=== PATIENT | male | born 1975 | race Caucasian/White ===

== ENCOUNTER 2019-12-22 03:29 | Inpatient (IN) | payer SELFPAY ==
[~2019-12-22] VITALS: Ht 177.8 cm; Wt 87.0 kg
[2019-12-22] MEDS ORDERED: Vitamin D2000 UNIT PO (03:40)
[2019-12-22] MEDS ORDERED: LISI10 PO (03:40)
[2019-12-22] MEDS ORDERED: LEVE500 PO (03:40)
[2019-12-22 03:46] LABS: BASOPHILS ABSOLUTE AUTO 0.02 K/mm3 (0.00-0.23); BASOPHILS PERCENT AUTO 0 % (0-2); EOSINOPHILS ABSOLUTE AUTO 0.03 K/mm3 (0.00-0.68); EOSINOPHILS PERCENT AUTO 0 % (0-6); Hemoglobin 7.1 g/dL (13.5-17.5); IMMATURE GRAN ABSOLUTE AUTO 0.01 K/mm3 (0.00-0.10); IMMATURE GRAN PERCENT AUTO 0 % (0-1); LYMPHOCYTES ABSOLUTE AUTO 0.81 K/mm3 (0.84-5.20); LYMPHOCYTES PERCENT AUTO 12 % (21-46); MONOCYTES ABSOLUTE AUTO 0.44 K/mm3 (0.16-1.47); MONOCYTES PERCENT AUTO 7 % (4-13); Mean Corpuscular HGB Conc 33.8 g/dL (31.5-36.5); Mean Corpuscular Volume 103 fL (80-100); Mean Platelet Volume 10.8 fL (9.1-12.4); NEUTROPHILS ABSOLUTE AUTO 5.48 K/mm3 (1.96-9.15); NEUTROPHILS PERCENT AUTO 81 % (41-73); Platelet Count 63 K/mm3 (150-400); RDW Coefficient Variation 16.1 % (11.7-14.2); RDW Standard Deviation 61.4 fL (35.1-46.3); Red Blood Cell Count 2.03 M/mm3 (4.30-5.90); White Blood Cell Count 6.79 K/mm3 (4.00-11.30)
[2019-12-22 04:09] LABS: Albumin, Blood 2.2 g/dL (3.4-5.0); Albumin/Globulin Ratio 0.6 (0.8-1.8); Bilirubin, Total 4.7 mg/dL (0.1-1.0); Bun/Creatinine Ratio 16.1 (12.0-20.0); Calcium, Blood 8.3 mg/dL (8.5-10.1); Creatinine, Blood 1.92 mg/dL (0.60-1.20); Globulin, Blood 3.9 g/dL (2.2-4.0); Potassium, Blood 4.9 mmol/L (3.5-5.5); Total Protein, Blood 6.1 g/dL (6.4-8.2)
[2019-12-22 04:29] LABS: Magnesium, Blood 1.1 mg/dL (1.6-2.4)
[2019-12-22 04:36] LABS: Source, Urine Clean Catch
[2019-12-22 04:38] LABS: Bilirubin, Urine Neg (Neg); Blood, Urine Neg (Neg); Glucose Qualitative, Urine Neg (Neg); Ketones, Urine Neg (Neg); Leukocyte Esterase, Urine Neg (Neg); Nitrite, Urine Neg (Neg); Protein, Urine Neg (Neg); Specific Gravity, Urine 1.015 (1.003-1.022); Urobilinogen, Urine 1+ (Normal)
[2019-12-22 04:49] LABS: Appearance, Urine Clear (Clear); Color, Urine Amber (P-Yellow)
[2019-12-22 04:56] LABS: International Normalized Ratio 1.4; Prothrombin Time Results 14.7 Sec (9.7-11.5)
[2019-12-22 05:29] LABS: U Amphetamine Screen Not Detected; U Barbituate Screen Not Detected; U Benzodiazapine Screen DETECTED; U Buprenorphine Screen Not Detected; U Cannabinoids Screen DETECTED; U Cocaine Screen Not Detected; U Methadone Screen Not Detected; U Methamphetamine Screen Not Detected; U Opiates Screen Not Detected; U Oxycodone Screen Not Detected; U Phencyclidine Screen Not Detected; U Propoxyphene Screen Not Detected
[2019-12-22] MEDS ORDERED: FISH OIL 1,0001 EAC7 PO (08:48)
[2019-12-22] MEDS ORDERED: IBUP600 PO (08:49)
[2019-12-22 11:09] LABS: Hematocrit 21.9 % (37.0-53.0); Hemoglobin 7.3 g/dL (13.5-17.5)
--- NOTE | 2019-12-22 12:29 | NUR ---
12/22/19 1229 Dasha Calderon History, Chart, Medications and Allergies reviewed before start of procedure.PATIENT DETERMINED TO BE ASA APPROPRIATE FOR PROPOFOL SEDATION PRIOR TO START OF PROCEDURE BY MONITOR INTACT WITH CONTINUOUS PULSE OXIMETRY AND INTERMITTENT BP. 3-LEAD EKG REVIEWED WITH PHYSICIAN PRIOR TO START OF PROCEDURE.O2 VIA N/C INTACT THROUGHOUT SEDATION/PROCEDURE.
[2019-12-22 14:32] LABS: BASOPHILS ABSOLUTE AUTO 0.02 K/mm3 (0.00-0.23); BASOPHILS PERCENT AUTO 0 % (0-2); EOSINOPHILS ABSOLUTE AUTO 0.03 K/mm3 (0.00-0.68); EOSINOPHILS PERCENT AUTO 1 % (0-6); Hemoglobin 7.7 g/dL (13.5-17.5); IMMATURE GRAN ABSOLUTE AUTO 0.01 K/mm3 (0.00-0.10); IMMATURE GRAN PERCENT AUTO 0 % (0-1); LYMPHOCYTES ABSOLUTE AUTO 0.62 K/mm3 (0.84-5.20); LYMPHOCYTES PERCENT AUTO 11 % (21-46); MONOCYTES ABSOLUTE AUTO 0.51 K/mm3 (0.16-1.47); MONOCYTES PERCENT AUTO 9 % (4-13); Mean Corpuscular HGB 32.4 pg (26.0-34.0); Mean Corpuscular HGB Conc 33.5 g/dL (31.5-36.5); Mean Platelet Volume 11.2 fL (9.1-12.4); NEUTROPHILS ABSOLUTE AUTO 4.31 K/mm3 (1.96-9.15); NEUTROPHILS PERCENT AUTO 78 % (41-73); RDW Coefficient Variation 18.7 % (11.7-14.2); RDW Standard Deviation 66.3 fL (35.1-46.3); Red Blood Cell Count 2.38 M/mm3 (4.30-5.90)
[2019-12-22 14:54] LABS: Mean Corpuscular Volume 97 fL (80-100)
[2019-12-22 14:55] LABS: Platelet Count 37 K/mm3 (150-400)
--- NOTE | 2019-12-22 16:00 | NUR ---
PT ADMITTED THIS AM AT 0805 FROM ER FOR ACUTE/ACTIVE UPPER GI BLEED. PT VOMITED DARK RED BLOOD W CLOTS ON TRANSFER FROM ER TO ICU PER SUPPORT REPRESENTATIVE. PT NAUSEATED ON ADMIT BUT DENIED ABD PAIN. ON ADMIT PT C/O CHRONIC SCIATICA PAIN 08/27. PT ALSO C/O PAIN TO HEAD 08/27. PT STATES THAT HE DRINKS HARD ALCOHOL 4X WEEK OR MORE, DESCRIBES SELF "HABITUAL ALCOHOLIC". PT HAS FINE UPPER ARM REMORS W ARMS EXTENDED. PT POS FOR ETOH ON ADMIT; WILL MONITOR FOR W/D SYMPTOMS. W/D SYMPTOMS ALSO DISCUSED W PT; PT WILL NOTIFY RN IF HE FEELS W/D SYMPTOMS INCREASING. PT RECEIVED ONE UNIT PRBC'S IN ER, SECOND UNIT STARTED AT 0837, THIRD UNIT STARTED AT 1153 AND ENDED AT 1402. PT TOLERATED ALL BLOOD PRODUCTS W/O ANY ADVERSE REACTIONS. LUNGS REMAIN CLEAR. DR MONTANA CALLED UPON ADMIT AND GIVEN FULL UPDATE. 3RD UNIT RBC'S ORDERED PRIOR TO EGD BY DR MONTANA. LEVOPHED ALSO OREDERED FOR EGD. LEVOPHED BRIEFLY USED FROM FROM 1159 UNTIL 1241. LEVOPHED TITRATED TO 10MCG DURING PROCEDURE AND TITRATED OFF AT 1241. EGD SHOWED 2 ULCERS; NOT ACTIVELY BLEEDING PER DR MONTANA. STOMACH WAS "FULL OF BLOOD". REGLAN GIVEN EARLIER FOR NAUSEA AND STARTED SCHEDULED DOSE TO MOVE BLOOD. PT HAS BEEN INCONTINENT OF BLACK LIQUID STOOL SEVERAL TIMES SINCE EGD. PT TO BEDSIDE COMMODE AT 1515 W ABOUT 500CC OLD BLOOD TO COMMODE. PT TOLERATED BEING UPRIGHT OOB AND BP REMAINS STABLE. DR BEDOLLA IN TO SEE PT THIS AM AT 0920. DR BEDOLLA UPDATED AT 1054; MG 2GM ORDERED FOR MAG OF 1.2. DR BEDOLLA AGAIN UPDATED AT 1534 WITH CRITICAL LOW PLATELETS. LABS ORDERED FOR 1800. PT STARTED ON ICE CHIPS AND THEN PROGRESSED TO CLEAR LIQUIDS PER DR MONTANA. PT TOLERATING LIQUIDS WELL W/O NAUSEA OR VOMITING. PROTONIX AND SANDOSTATIN GTT HAVE BEEN INFUSING SINCE THIS AM AND CONT TO INFUSE PER DR MONTANA. PT'S IS AT BEDSIDE NOW.
[2019-12-22 18:41] LABS: BASOPHILS ABSOLUTE AUTO 0.02 K/mm3 (0.00-0.23); BASOPHILS PERCENT AUTO 0 % (0-2); EOSINOPHILS ABSOLUTE AUTO 0.03 K/mm3 (0.00-0.68); EOSINOPHILS PERCENT AUTO 1 % (0-6); Hematocrit 22.3 % (37.0-53.0); Hemoglobin 7.6 g/dL (13.5-17.5); IMMATURE GRAN ABSOLUTE AUTO 0.01 K/mm3 (0.00-0.10); IMMATURE GRAN PERCENT AUTO 0 % (0-1); LYMPHOCYTES ABSOLUTE AUTO 0.64 K/mm3 (0.84-5.20); LYMPHOCYTES PERCENT AUTO 10 % (21-46); MONOCYTES ABSOLUTE AUTO 0.49 K/mm3 (0.16-1.47); MONOCYTES PERCENT AUTO 8 % (4-13); Mean Corpuscular HGB 32.6 pg (26.0-34.0); Mean Corpuscular HGB Conc 34.1 g/dL (31.5-36.5); Mean Corpuscular Volume 96 fL (80-100); NEUTROPHILS ABSOLUTE AUTO 5.29 K/mm3 (1.96-9.15); NEUTROPHILS PERCENT AUTO 82 % (41-73); RDW Coefficient Variation 19.2 % (11.7-14.2); RDW Standard Deviation 65.9 fL (35.1-46.3); Red Blood Cell Count 2.33 M/mm3 (4.30-5.90); White Blood Cell Count 6.48 K/mm3 (4.00-11.30)
[2019-12-22 18:59] LABS: Platelet Count 34 K/mm3 (150-400)
--- NOTE | 2019-12-22 19:34 | NUR ---
PT GIVEN LIBRIUM 50MG FOR CIWA 11. PT HAS FINE TREMOR WITH HANDS EXTENDED, C/O HEADACHE 6/10, AND ANXIETY WORSE THAN BASELINE. BP STABLE AND IS IN FACT SLIGHTLY HTN. PT TO TOILET W SBA; ASYMPTOMATIC. DENIES DIZZINESS. [address] BEDOLLA. REPEAT LABS AT 2300. REPORT GIVEN TO ARNAV ALFARO.
--- NOTE | 2019-12-22 19:55 | NUR ---
ASSUMED CARE: PT ALERT, ORIENTED. FEBRILE WITH A TEMP OF 99.6. PT DOES C/O OF SOME ANXIETY/IRRITABILITY AND A TITUS 5/10. IN ST. SBP IN THE 160S, HR IN THE 110S. LUNG SOUNDS CLEAR, SPO2 >90% RA. PT IS ON A CLEAR LIQUID DIET. BT X 4, HYPERACTIVE. PT DOES NOT C/O N/V OR ABD CRAMPING. PT HAD A BM AT BEGINNING OF SHIFT. IT WAS LARGE, LIQUID, DARK, AND RED. PT IS UP IN ROOM WITH A STANDBY ASSIST BUT OTHERWISE INDEPENDENT. PT HAS 4 IVS. IRIS, LAC.LFA, AND RFA. NS INFUSING AT 100MLS/HR, SANDOSTATIN AT 25MLS/HR, PROTONIX AT 10MLS/HR.. WILL CONTINUE TO MONITOR
[2019-12-22 23:39] LABS: BASOPHILS ABSOLUTE AUTO 0.04 K/mm3 (0.00-0.23); BASOPHILS PERCENT AUTO 1 % (0-2); EOSINOPHILS PERCENT AUTO 2 % (0-6); Hematocrit 23.1 % (37.0-53.0); Hemoglobin 7.8 g/dL (13.5-17.5); IMMATURE GRAN ABSOLUTE AUTO 0.02 K/mm3 (0.00-0.10); IMMATURE GRAN PERCENT AUTO 0 % (0-1); LYMPHOCYTES ABSOLUTE AUTO 0.88 K/mm3 (0.84-5.20); LYMPHOCYTES PERCENT AUTO 13 % (21-46); MONOCYTES ABSOLUTE AUTO 0.44 K/mm3 (0.16-1.47); MONOCYTES PERCENT AUTO 7 % (4-13); Mean Corpuscular HGB Conc 33.8 g/dL (31.5-36.5); Mean Corpuscular Volume 95 fL (80-100); Mean Platelet Volume 11.5 fL (9.1-12.4); NEUTROPHILS ABSOLUTE AUTO 5.12 K/mm3 (1.96-9.15); NEUTROPHILS PERCENT AUTO 78 % (41-73); RDW Coefficient Variation 19.4 % (11.7-14.2); RDW Standard Deviation 66.4 fL (35.1-46.3); Red Blood Cell Count 2.44 M/mm3 (4.30-5.90)
[2019-12-22 23:43] LABS: Platelet Count 37 K/mm3 (150-400)
--- NOTE | 2019-12-23 03:44 | NUR ---
CALL PLACED TO DR FORREST RE SBP IN THE 200S. ORDERS RECEIVED FOR HYDRALAZINE 10MG IV Q6 PRN FOR SBP >160. FIRST DOSE GIVEN
[2019-12-23 05:07] LABS: BASOPHILS ABSOLUTE AUTO 0.03 K/mm3 (0.00-0.23); BASOPHILS PERCENT AUTO 1 % (0-2); EOSINOPHILS ABSOLUTE AUTO 0.12 K/mm3 (0.00-0.68); EOSINOPHILS PERCENT AUTO 2 % (0-6); Hematocrit 23.3 % (37.0-53.0); IMMATURE GRAN ABSOLUTE AUTO 0.02 K/mm3 (0.00-0.10); IMMATURE GRAN PERCENT AUTO 0 % (0-1); LYMPHOCYTES ABSOLUTE AUTO 0.74 K/mm3 (0.84-5.20); LYMPHOCYTES PERCENT AUTO 15 % (21-46); MONOCYTES ABSOLUTE AUTO 0.42 K/mm3 (0.16-1.47); MONOCYTES PERCENT AUTO 8 % (4-13); Mean Corpuscular HGB 32.9 pg (26.0-34.0); Mean Corpuscular HGB Conc 34.3 g/dL (31.5-36.5); Mean Corpuscular Volume 96 fL (80-100); Mean Platelet Volume 11.1 fL (9.1-12.4); NEUTROPHILS ABSOLUTE AUTO 3.77 K/mm3 (1.96-9.15); NEUTROPHILS PERCENT AUTO 74 % (41-73); RDW Coefficient Variation 19.8 % (11.7-14.2); RDW Standard Deviation 67.7 fL (35.1-46.3); Red Blood Cell Count 2.43 M/mm3 (4.30-5.90)
[2019-12-23 05:09] LABS: Platelet Count 32 K/mm3 (150-400)
--- NOTE | 2019-12-23 06:16 | NUR ---
SHIFT SUMMARY: PT SLEPT MAJORITY OF NIGHT. HAD A COUPLE MOMENTS OF IMPULSIVENESS, ATTEMPTING TO GET OUT OF BED WITHOUT USING CALL LIGHT. PT HAD ONE EPISODE OF BOWEL AND BLADDER INCONTINENCE. IS ABLE TO USE URINAL BUT NEEDS SOME ASSISTANCE. PT HAS HAD AN INCREASE OF ETOH WITHDRAWAL SYMPTOMS. CIWA 11, 16, 9. MEDICATED WITH ATIVAN X 2 AND PO LIBRIUM. NO FURTHER S/S OF BLEEDING. NO HEMATEMESIS AND BLOODY STOOL X 2. PT BP ELEVATED. HYDRALAZINE ORDERED PRN. ONE DOSE GIVEN WITH MINIMAL EFFECT. PER ADRIANE ORDER NS HAS BEEN D/C'D. SANDOSTATIN RUNNING AT 25MLS/HR AND PROTONIX AT 10ML/HR. WILL PASS REPORT TO ONCOMING SHIFT
--- NOTE | 2019-12-23 09:55 | NUR ---
PT ASSESSED THIS AM AT 0730. PT SLEEPING, AWAKENS TO LIGHT SHAKE. PT C/O TITUS 11/27. BP ELEVATED. CIWA 13. CIWA ELEVATED FOR TREMORS AND TITUS. PT STATES HE WOULD LIKE TO QUIT DRINKING. LIBRIUM 50MG GIVEN. DR BEDOLLA IN TO SEE PT, FULL UPDATE GIVEN. LABETALOL ORDERED PRN FOR SBP>180, THIS WAS GIVEN W GOOD EFFECT. FENT GIVEN FOR TITUS. NO SIGNS OF ACTIVE BLEEDING, PT DENIES NAUSEA OR ABD PAIN. PROTONIX AND SANDOSTATIN GTT INFUSING. PT WOKE UP AT 1000, INCONTINENT OF URINE. PT SOMEWHAT AGITATED AND SLIGHTLY ANGRY. PT SEEMED DISORIENTED TO WHY HE WAS HOOKED UP AND INCONTINENT. PT REDIRECTABLE. PT IMPULSIVE; BED ALARM ON
[2019-12-23 11:16] LABS: Anion Gap 6 mmol/L (6-16); Blood Urea Nitrogen 23 mg/dL (8-24); Bun/Creatinine Ratio 21.5 (12.0-20.0); CO2, Blood 24 mmol/L (21-32); Calcium, Blood 7.3 mg/dL (8.5-10.1); Chloride, Blood 106 mmol/L (98-108); Creatinine, Blood 1.07 mg/dL (0.60-1.20); Glomerular Filtration Rate >60 (60-); Glucose, Blood 203 mg/dL (70-99); Potassium, Blood 3.8 mmol/L (3.5-5.5); Sodium, Blood 136 mmol/L (136-145)
--- NOTE | 2019-12-23 13:23 | NUR ---
PT ACCIDENTLY PULLED OUT IV WHILE REACHING FOR WATER. LINEN CHANGED, PARTIAL BATH GIVEN. DR MONTANA IN TO SEE PT. SANDOSTATIN DC'D. PROTONIX GTT REMAINS. DIET ADVANCED TO FULL LIQ. PT DID NOT EAT LUNCH HE IS SOMEWHAT SOMULENT. ABLE TO WAKE UP AND TAKE SIPS OF WATER, FOLLOWS DIRECTIONS BUT IS SLOW TO RESPOND.
--- NOTE | 2019-12-23 13:59 | NUR ---
PT WOKE UP, IMPULSIVE, ATTEMPTING TO GET OUT OF BED TO "SIT ON TOILET". PT INCONTINENT OF LARGE AMT OF URINE ON FLOOR IN FRONT OF TOILET. PT RESISTANT TO INSTRUCTION AT FIRST BUT THEN COOPERATIVE. LINEN CHANGED, PT CLEANED.
--- NOTE | 2019-12-23 14:20 | NUR ---
MAR 16, HOLDING ATIVAN AND LIBRIUM FOR NOW PT IS SEDATED. PT CAN BE IMPULSIVE AND MILDLY AGITATED BUT IS STILL REDIRECTABLE AND COOPERATIVE. ORIENTED TO SELF AND SITUATION.
--- NOTE | 2019-12-23 16:04 | NUR ---
MAG CRITICAL LOW AT 0.8, DR BEDOLLA NOTIFIED IMMEDIATELY. 2GM MAG INFUING NOW W ORDERS TO CHECK MAG AFTER INFUSION.
--- NOTE | 2019-12-23 18:30 | NUR ---
PT WOKE UP AT 1700 AND ASSISTED TO TOILET. PT INCONTINENT OF URINE IN FRONT OF TOILET. PT MORE CALM ABOUT IT THIS TIME. PT A LITTLE MORE AWAKE AND SLIGHTLY MORE STEADY ON HIS FEET WELL; COMPARED TO EARLIER THIS AFTERNOON. PT SAT UP IN BED AND ATE 100% OF HIS FULL LIQUID TRAY. VERY LITTLE TREMOR. BP REMAINS ELEVATED BUT SBP <180. PT APPEARS MUCH IMPROVED COMPARED TO EARLIER THIS SHIFT R/T ETOH W/D SYMPTOMS. MAG COMPLETE. AWAITING 1800 MAG RESULTS.
[2019-12-23 18:51] LABS: Percent Saturation 104.2 % (20.0-50.0)
--- NOTE | 2019-12-23 19:02 | NUR ---
LABETALOL 20MG PUSHED OVER 2 MIN FOR SBP > 180. PT C/O TITUS. LIBRIUM 25MG GIVEN FOT CIWA OF 11.
--- NOTE | 2019-12-23 20:30 | NUR ---
PT RESTING IN BED. A LITTLE ANXIOUS, TREMULOUS, AND FIDGETY. SEE CIWA SCORE. GAVE LIBRIUM AND FENTANYL FOR TITUS. PT HAS BEEN HYPERTENSIVE, WILL MONITOR AFTER LIBRIUM AND FENTANYL HAVE TAKEN EFFECT TO SEE IF PRN HYDRALAZINE IS NEEDED. PT WAS ABLE TO GET TO TOILET WITH MOD 1 PERSON ASSIST. UNSTEADY GAIT AND WAS INCONTINENT OF URINE. BED ALARM ARMED FOR SAFETY. NO SIGN OF DISTRESS.
--- NOTE | 2019-12-24 05:58 | NUR ---
SUMMARY PT RESTING IN BED. CIWA IMPROVED. PT IS A/O X4 THIS AM. STILL UNSTEADY ON FEET. MOVES SELF IN BED. NO SIGN OF BLEEDING. RECEIVED MAG REPLACEMENT. NO OTHER CHANGES.
--- NOTE | 2019-12-24 07:17 | NUR ---
ASSUMED CARE REPORT FROM DOMINIC URRUTIA. PATIENT SLEEPING. PROTONIX GTT.
[2019-12-24 08:21] LABS: BASOPHILS ABSOLUTE AUTO 0.02 K/mm3 (0.00-0.23); BASOPHILS PERCENT AUTO 1 % (0-2); EOSINOPHILS ABSOLUTE AUTO 0.11 K/mm3 (0.00-0.68); EOSINOPHILS PERCENT AUTO 3 % (0-6); Hematocrit 20.1 % (37.0-53.0); Hemoglobin 6.9 g/dL (13.5-17.5); IMMATURE GRAN ABSOLUTE AUTO 0.02 K/mm3 (0.00-0.10); IMMATURE GRAN PERCENT AUTO 1 % (0-1); LYMPHOCYTES PERCENT AUTO 20 % (21-46); MONOCYTES ABSOLUTE AUTO 0.36 K/mm3 (0.16-1.47); MONOCYTES PERCENT AUTO 11 % (4-13); Mean Corpuscular HGB 33.3 pg (26.0-34.0); Mean Corpuscular HGB Conc 34.3 g/dL (31.5-36.5); Mean Corpuscular Volume 97 fL (80-100); Mean Platelet Volume 11.7 fL (9.1-12.4); NEUTROPHILS ABSOLUTE AUTO 2.23 K/mm3 (1.96-9.15); NEUTROPHILS PERCENT AUTO 65 % (41-73); RDW Coefficient Variation 19.9 % (11.7-14.2); RDW Standard Deviation 68.9 fL (35.1-46.3); Red Blood Cell Count 2.07 M/mm3 (4.30-5.90); White Blood Cell Count 3.44 K/mm3 (4.00-11.30)
[2019-12-24 08:40] LABS: Platelet Count 33 K/mm3 (150-400)
[2019-12-24 11:21] LABS: BASOPHILS ABSOLUTE AUTO 0.02 K/mm3 (0.00-0.23); BASOPHILS PERCENT AUTO 1 % (0-2); EOSINOPHILS ABSOLUTE AUTO 0.12 K/mm3 (0.00-0.68); EOSINOPHILS PERCENT AUTO 4 % (0-6); Hematocrit 20.2 % (37.0-53.0); Hemoglobin 6.5 g/dL (13.5-17.5); IMMATURE GRAN ABSOLUTE AUTO 0.02 K/mm3 (0.00-0.10); IMMATURE GRAN PERCENT AUTO 1 % (0-1); LYMPHOCYTES ABSOLUTE AUTO 0.55 K/mm3 (0.84-5.20); LYMPHOCYTES PERCENT AUTO 16 % (21-46); MONOCYTES ABSOLUTE AUTO 0.45 K/mm3 (0.16-1.47); MONOCYTES PERCENT AUTO 13 % (4-13); Mean Corpuscular HGB 32.5 pg (26.0-34.0); Mean Corpuscular HGB Conc 32.2 g/dL (31.5-36.5); Mean Corpuscular Volume 101 fL (80-100); Mean Platelet Volume 12.2 fL (9.1-12.4); NEUTROPHILS ABSOLUTE AUTO 2.26 K/mm3 (1.96-9.15); NEUTROPHILS PERCENT AUTO 66 % (41-73); RDW Coefficient Variation 20.2 % (11.7-14.2); RDW Standard Deviation 73.4 fL (35.1-46.3); White Blood Cell Count 3.42 K/mm3 (4.00-11.30)
[2019-12-24 11:30] LABS: Platelet Count 32 K/mm3 (150-400)
--- NOTE | 2019-12-24 11:42 | NUR ---
CALLED DR. MONTANA WITH RESULTS OF 11 AM LABS. ORDERED 2 UNITS PRBC
--- NOTE | 2019-12-24 17:17 | NUR ---
REPORT GIVEN TO DOMINIC MEYER. PATIENT WILL BE TX'D TO 342 WHE BLOOD TRANSFUSION IS COMPLETE
--- NOTE | 2019-12-24 17:20 | NUR ---
Per admit trigger, I was tasked to meet with Pritesh to offer information/education on advanced care planning. He was quite sleepy and uninterested. I left advanced directive packet on bedside table. I will remain available.
--- NOTE | 2019-12-24 18:27 | NUR ---
SHIFT SUMMARY. 1753 PT TRANSFERRED FROM ICU TO MEDICAL FLOOR VIA W/C. PT SELF TRANSFERRED TO BED WITHOUT ISSUE. REPORT RECIEVED PRIOR TO TRANSFER. PROTONIX DRIP RESTARTED. BED ALARM ACTIVATED.
--- NOTE | 2019-12-24 20:52 | NUR ---
ASSUMED CARE. AOX3, FORGETFUL. LAYING IN BED EATING JELLO. DENIES ANY TITUS, SOB, CHEST PAIN, PAIN, N/V. MILD TREMORS IN HANDS ON AND OFF. STATED HE HAS HARD TIME HOLDING THINGS, TENDS TO DROP THEM. IV PROTONIX INFUSING. CALLED PHARMACY FOR MORE. HUNG ANTIBOTIC. ALL IV LINES FLUSHED. WRAPPED SITES. USES URINAL. URINE IS VERY DARK TEA COLOR. ENCOURAGED TO DRINK MORE FLUIDS. EYES SLIGHTLY JAUDICE. DENIES ANY NEEDS. CALL LIGHT IN REACH.
[2019-12-25 01:09] LABS: HBSAG SCREEN Negative (Negative); HEP B CORE AB, TOT Negative (Negative); HEP C VIRUS AB 0.1 (0.0-0.9)
--- NOTE | 2019-12-25 05:25 | NUR ---
SHIFT SUMMARY: RADHA HAS BEEN COOPERATIVE T/O SHIFT. TOLERATING FULL LIQUID DIET WELL. PROTONIX INFUSING AT 10ML/HR. FLUSHED ALL OTHER IV SITES. 1 BM NOTED. VS WNL, DID HAVE SPIKE IN TEMP, DUE TO ELEVATION IN HEAT IN ROOM. RETAKE WAS NORMAL. NO SIGNS OF BLEEDING THIS SHIFT. NO OTHER CHANGES TO REPORT. WILL CONTINUE TO MONITOR.
[2019-12-25 08:43] LABS: Hematocrit 23.5 % (37.0-53.0); Hemoglobin 7.9 g/dL (13.5-17.5); Mean Corpuscular HGB 31.9 pg (26.0-34.0); Mean Corpuscular HGB Conc 33.6 g/dL (31.5-36.5); Mean Platelet Volume 11.4 fL (9.1-12.4); RDW Coefficient Variation 20.7 % (11.7-14.2); RDW Standard Deviation 69.9 fL (35.1-46.3); Red Blood Cell Count 2.48 M/mm3 (4.30-5.90); White Blood Cell Count 3.28 K/mm3 (4.00-11.30)
[2019-12-25 08:50] LABS: Mean Corpuscular Volume 95 fL (80-100)
[2019-12-25 08:52] LABS: Platelet Count 38 K/mm3 (150-400)
[2019-12-25] MEDS ORDERED: CIPRO500 MG PO (12:03)
[2019-12-25] MEDS ORDERED: FERSU300 PO (12:03)
[2019-12-25] MEDS ORDERED: PANT40 PO (12:04)
--- NOTE | 2019-12-25 12:06 | NUR ---
PT STATES HE HAS A PCP IN [place] AND THAT HE WANTS TO MAKE HIS OWN FOLLOW UP APPT.
--- NOTE | 2019-12-25 14:16 | NUR ---
1414 PT DISCHARGED HOME VIA PERSONAL VEHICLE ACCOMPANIED AND DRIVEN BY . PT ESCORTED TO ENTRANCE VIA W/C BY VOLUNTEER. IVS REMOVED. D/C INSTRUCTIONS REVIEWED WITH PT AND COPY PROVIDED. NEW RX FAXED TO [facility] PER PT REQUEST. NO NEW CHANGES OR CONCERNS.
== END 2019-12-25 14:13 | disposition home or self-care (01) | DRG 381 ==
LOC: ER 03:29 → ICUW 06:28 → ICUE 12-23 20:08 → MEDS 12-24 17:50
PROVIDERS: Emergency Medicine; Hospitalist; Internal Medicine Gastroenterology; ADMIT Family Medicine
PROC: 0DJ08ZZ Inspection of Upper Intestinal Tract, Via Natural or Artificial Opening Endoscopic (ICD-10-PCS; 2019-12-22)
PROC: 30233N1 Transfusion of Nonautologous Red Blood Cells into Peripheral Vein, Percutaneous Approach (ICD-10-PCS; principal; 2019-12-22 11:30)
DX: K22.11 Ulcer of esophagus with bleeding (principal); D62 Acute posthemorrhagic anemia; E72.20 Disorder of urea cycle metabolism, unspecified; K76.6 Portal hypertension; F10.231 Alcohol dependence with withdrawal delirium; I10 Essential (primary) hypertension; Y90.8 Blood alcohol level of 240 mg/100 ml or more; Z20.828 Contact with and (suspected) exposure to other viral communicable diseases; K70.30 Alcoholic cirrhosis of liver without ascites; E83.42 Hypomagnesemia; D69.6 Thrombocytopenia, unspecified; F17.210 Nicotine dependence, cigarettes, uncomplicated; I95.9 Hypotension, unspecified; R73.03 Prediabetes; R50.9 Fever, unspecified
CPT/HCPCS: 36415; 36430; 71045; 76705; 80048; 80053; 81003; 82105; 82140; 82728; 82947; 83036; 83540; 83550; 83690; 83735; 85014; 85018; 85025; 85027; 85610; 86317; 86704; 86708; 86803; 86850; 86900; 86901; 86923; 87340; 96365; 96366; 96367; 96368; 96375; 99285-25; A9270-GY; C9113; G0480; J0171; J0360; J0696; J1815; J1953; J2060; J2250; J2354; J2405; J2704; J2765; J2916; J3010; J3411; J3475; J7030; J7040; J7050; J7060; J7120; P9016; U0002